=== PATIENT | female | born 1950 | race Caucasian/White ===

== ENCOUNTER → 2017-01-19 | Outpatient (CLI) | payer MEDICARE, BC | LOC: MW.CHPM 08:00 | CPT/HCPCS: 99214 ==

== ENCOUNTER → 2017-04-11 | Outpatient (CLI) | payer MEDICARE, BC | LOC: MW.CHPM 08:00 | PROVIDERS: ATTEND Anesthesiology | DX: M51.36 Other intervertebral disc degeneration, lumbar region (principal); M48.06 Spinal stenosis, lumbar region; M79.1 Myalgia; G89.4 Chronic pain syndrome | CPT/HCPCS: 20553; 99214; J0702; J1885 ==

== ENCOUNTER 2017-09-12 18:54 | Emergency (ER) | payer MEDICARE, BC ==
[2017-09-12] MEDS ORDERED: Sodium Chloride 0.9% 1,000 ML IV ONE (19:03)
[2017-09-12] MEDS ORDERED: Pantoprazole 40 MG in Sodium Chloride 0.9% 10 ML IVPUSH ONE (19:03)
[2017-09-12] MEDS ORDERED: Alum Hydrox/Mag Hydrox/Simeth 15 ML, Metoclopramide 5 MG, Lidocaine 2% 5 ML PO ONE ×3 (19:03)
[2017-09-12] MEDS ORDERED: Aspirin 81 MG Tab.Chew PO ONE (19:03)
--- NOTE | 2017-09-12 19:10 | EDM.PDOC ---
ED HPI GENERAL MEDICAL PROBLEM - General Chief Complaint: Chest Pain Stated Complaint: CHEST PAIN Time Seen by Provider: 09/12/17 18:56 Source of Information: Reports: Patient History Limitations: Reports: No Limitations - History of Present Illness INITIAL COMMENTS - FREE TEXT/NARRATIVE: HISTORY AND PHYSICAL: History of present illness: Patient is an 85-year-old female who presents to the emergency room today with complaints of epigastric pain that radiates into the left chest that started approximately at noon. States around noon she started to have epigastric pain, describes this as a burning pain that radiates into her midsternal chest into the left breast chest wall area. But she also has nausea and vomiting. Took 1 baby aspirin prior to arrival. Patient reports that she did have a similar episode of chest pain approximately a year ago and this was diagnosed to be epigastric/heartburn. Since that time she has been taking [id number] antacids. With her history of GERD - does take Zantac every night before bed. Took Tums prior to arrival with minimal relief. Reports that 2 days ago she felt constipated and did take an [id number] exited had good results yesterday. Since has had regular bowel movements. No significant family history of heart disease. Review of systems: As per history of present illness and below otherwise all systems reviewed and negative. Past medical history: As per history of present illness and as reviewed below otherwise noncontributory. Surgical history: As per history of present illness and as reviewed below otherwise noncontributory. Social history: No reported history of drug or alcohol abuse. Family history: As per history of present illness and as reviewed below otherwise noncontributory. Physical exam: HEENT: Atraumatic, normocephalic, pupils reactive, negative for conjunctival pallor or scleral icterus, mucous membranes moist, throat clear, neck supple, nontender, trachea midline. Lungs: Clear to auscultation, breath sounds equal bilaterally, chest nontender. Non-reproducible with palpation. Heart: S1S2, regular rate and rhythm Abdomen: Soft, nondistended, mild tenderness to the epigastric area otherwise nontender. No rebound tenderness. Negative for masses or hepatosplenomegaly. Negative for costovertebral tenderness. Pelvis: Stable nontender. Genitourinary: Deferred. Rectal: Deferred. Skin: Intact, warm, dry. No overt lesions or rashes. Extremities: Atraumatic, moves all extremities per self, negative for cords or calf pain. Neurovascular unremarkable. Neuro: Awake, alert, oriented. Cranial nerves II through XII unremarkable. Cerebellum unremarkable. Motor and sensory unremarkable throughout. Exam nonfocal. Reviewed diagnostics with patient. I strongly encouraged that we keep patient for observation for further evaluation and to monitor her pain. Patient declined admission at this time. Risks versus benefits were discussed. She states that if she does not feel improved or she develops new symptoms she will return to the emergency room. Is agreeable to following up with her primary care provider in the next day. Diagnostics: CBC, CMP, troponin, amylase, lipase, EKG, chest x-ray Therapeutics: IV fluid, Pepcid, aspirin (3 x 81mg - took one prior to arrival), GI cocktail Impression: Chest pain, nonspecific Epigastric pain Plan: 1. You declined admission at this time. As we discussed if your symptoms worsen or he develop new symptoms please return to the emergency room as soon as possible. 2. Continue your Zantac. If he continued to have symptoms of breakthrough heartburn he may want to establish care with a general surgeon for further evaluation. 3. Follow-up with your primary care provider in the next 1-2 days. Definitive disposition and diagnosis as appropriate pending reevaluation and review of above. Onset: Today Chest Pain Score (Numeric/FACES): 1 - Related Data Allergies Allergy/AdvReac Type Severity Reaction Status Date / Time No Known Allergies Allergy Verified 09/12/17 19:03 Home Meds: Home Meds FLUoxetine HCl [Fluoxetine HCl] 20 mg PO DAILY 05/25/14 [History] PHENobarbital 129.6 mg PO BEDTIME 05/25/14 [History] Topiramate 100 mg PO BID 05/25/14 [History] amLODIPine Besylate [Amlodipine Besylate] 5 mg PO DAILY 05/25/14 [History] levETIRAcetam [Keppra] 1,000 mg PO BID 05/25/14 [History] Losartan Potassium 25 mg PO DAILY 06/21/14 [History] Acetaminophen with Codeine [Tylenol with Codeine #3 Tablet] 1 - 2 each PO Q4H PRN 07/02/15 [History] Cholecalciferol (Vitamin D3) [Vitamin D] 2,000 unit PO DAILY 07/02/15 [History] Cyclobenzaprine [Flexeril] 10 mg PO TID PRN 07/02/15 [History] Ranitidine HCl [Ranitidine] 150 mg PO BID 07/02/15 [History] oxyCODONE HCl/Acetaminophen [Oxycodone-Acetaminophen 10-300] 1 tab PO ASDIRECTED PRN 09/12/17 [History] Past Medical History HEENT History: Reports: None Cardiovascular History: Reports: None Respiratory History: Reports: None Gastrointestinal History: Reports: None Genitourinary History: Reports: None CLINICAL PROGRAM COORDINATOR History: Reports: None Musculoskeletal History: Reports: None Neurological History: Reports: None Psychiatric History: Reports: Dementia Endocrine/Metabolic History: Reports: None Dermatologic History: Reports: None - Infectious Disease History Infectious Disease History: Reports: None - Past Surgical History HEENT Surgical History: Reports: None Cardiovascular Surgical History: Reports: None Social & Family History - Family History Family Medical History: Noncontributory - Tobacco Use Smoking Status *Q: Never Smoker Second Hand Smoke Exposure: No - Alcohol Use Days Per Week of Alcohol Use: 0 Number of Drinks Per Day: 0 Total Drinks Per Week: 0 - Recreational Drug Use Recreational Drug Use: No Drug Use in Last 12 Months: No ED ROS GENERAL - Review of Systems Review Of Systems: ROS reveals no pertinent complaints other than HPI. ED EXAM, GENERAL - Physical Exam Exam: See Below (See dictation) EKG INTERPRETATION EKG Date: 09/12/17 Time: 18:52 Rhythm: NSR Rate (Beats/Min): 89 Comparison: NA - No Prior EKG EKG Interpretation Comments: Reviewed by myself and Dr. Jacobo Course - Vital Signs Last Recorded V/S: Last Vital Signs Temp Pulse 104 H 09/12/17 19:00 Resp 16 09/12/17 19:00 BP 170/95 H 09/12/17 19:00 Pulse Ox 95 09/12/17 19:00 - Orders/Labs/Meds Orders: Active Orders 24 hr Category Date Time Status EKG Documentation Completion [RC] STAT Care 09/12/17 18:56 Active Chest 1V Frontal [CR] Stat Exams 09/12/17 18:56 Taken Labs: Laboratory Tests 09/12/17 09/12/17 09/12/17 Range/Units 19:50 19:50 19:50 WBC 11.43 H (4.0-11.0) K/uL RBC 3.61 L (4.30-5.90) M/uL Hgb 11.6 L (12.0-16.0) g/dL Hct 34.3 L (36.0-46.0) % MCV 95.0 (80.0-98.0) fL MCH 32.1 H (27.0-32.0) pg MCHC 33.8 (31.0-37.0) g/dL RDW Std Deviation 48.8 (28.0-62.0) fl RDW Coeff of Sg 14 (11.0-15.0) % Plt Count 222 (150-400) K/uL MPV 10.20 (7.40-12.00) fL Neut % (Auto) 79.9 (48.0-80.0) % Lymph % (Auto) 14.4 L (16.0-40.0) % [place] % (Auto) 5.2 (0.0-15.0) % Eos % (Auto) 0.3 (0.0-7.0) % Baso % (Auto) 0.2 (0.0-1.5) % Neut # (Auto) 9.1 H (1.4-5.7) K/uL Lymph # (Auto) 1.7 (0.6-2.4) K/uL [place] # (Auto) 0.6 (0.0-0.8) K/uL Eos # (Auto) 0.0 (0.0-0.7) K/uL Baso # (Auto) 0.0 (0.0-0.1) K/uL Nucleated RBC % 0.0 /100WBC Nucleated RBCs # 0 K/uL Sodium 137 (136-146) mmol/L Potassium 3.9 (3.5-5.1) mmol/L Chloride 109 (98-110) mmol/L Carbon Dioxide 20 L (21-31) mmol/L BUN 13 (6.0-23.0) mg/dL Creatinine 0.8 (0.6-1.5) mg/dL Est Cr Clr Drug Dosing 55.68 mL/min Estimated GFR (MDRD) > 60.0 ml/min Glucose 153 H (60-110) mg/dL Calcium 9.1 (8.8-10.8) mg/dL Total Bilirubin 0.2 (0.1-1.5) mg/dL AST 16 (5-40) IU/L ALT 9 (8-54) IU/L Alkaline Phosphatase 82 (40-150) Troponin I < 0.10 (0.0-0.29) NG/ML Total Protein 7.4 (6.0-8.0) g/dL Albumin 4.1 (3.4-4.8) g/dL Globulin 3.3 (2.0-3.5) g/dL Albumin/Globulin Ratio 1.2 L (1.3-2.8) Amylase 39 (10-90) U/L Lipase 14 (7-80) U/L H. pylori IgG Antibody (NEG) 09/12/17 Range/Units 19:50 WBC (4.0-11.0) K/uL RBC (4.30-5.90) M/uL Hgb (12.0-16.0) g/dL Hct (36.0-46.0) % MCV (80.0-98.0) fL MCH (27.0-32.0) pg MCHC (31.0-37.0) g/dL RDW Std Deviation (28.0-62.0) fl RDW Coeff of Sg (11.0-15.0) % Plt Count (150-400) K/uL MPV (7.40-12.00) fL Neut % (Auto) (48.0-80.0) % Lymph % (Auto) (16.0-40.0) % [place] % (Auto) (0.0-15.0) % Eos % (Auto) (0.0-7.0) % Baso % (Auto) (0.0-1.5) % Neut # (Auto) (1.4-5.7) K/uL Lymph # (Auto) (0.6-2.4) K/uL [place] # (Auto) (0.0-0.8) K/uL Eos # (Auto) (0.0-0.7) K/uL Baso # (Auto) (0.0-0.1) K/uL Nucleated RBC % /100WBC Nucleated RBCs # K/uL Sodium (136-146) mmol/L Potassium (3.5-5.1) mmol/L Chloride (98-110) mmol/L Carbon Dioxide (21-31) mmol/L BUN (6.0-23.0) mg/dL Creatinine (0.6-1.5) mg/dL Est Cr Clr Drug Dosing mL/min Estimated GFR (MDRD) ml/min Glucose (60-110) mg/dL Calcium (8.8-10.8) mg/dL Total Bilirubin (0.1-1.5) mg/dL AST (5-40) IU/L ALT (8-54) IU/L Alkaline Phosphatase (40-150) Troponin I (0.0-0.29) NG/ML Total Protein (6.0-8.0) g/dL Albumin (3.4-4.8) g/dL Globulin (2.0-3.5) g/dL Albumin/Globulin Ratio (1.3-2.8) Amylase (10-90) U/L Lipase (7-80) U/L H. pylori IgG Antibody NEGATIVE (NEG) Meds: Medications Discontinued Medications Generic Name Dose Route Start Last Admin Trade Name Freq PRN Reason Stop Dose Admin Aspirin 243 mg 09/12/17 19:03 09/12/17 19:15 Aspirin PO 09/12/17 19:04 243 mg ONETIME ONE Administration Al Hydroxide/Mg Hydroxide 15 0 ml 09/12/17 19:03 09/12/17 19:16 ml/ Metoclopramide HCl 5 mg/ PO 09/12/17 19:04 1 each Lidocaine HCl 5 ml ONETIME ONE Administration Pantoprazole Sodium 40 mg/ 10 mls @ 300 mls/hr 09/12/17 19:03 09/12/17 19:27 Sodium Chloride IVPUSH 09/12/17 19:04 300 mls/hr NOW ONE Administration Sodium Chloride 1,000 mls @ 999 mls/hr 09/12/17 19:03 09/12/17 19:27 Normal Saline IV 09/12/17 20:03 999 mls/hr STAT ONE Administration Ondansetron HCl 4 mg 09/12/17 20:13 09/12/17 20:18 Zofran IVPUSH 09/12/17 20:14 4 mg ONETIME ONE Administration Departure - Departure Time of Disposition: 20:50 Disposition: Home, Self-Care 01 Clinical Impression: Epigastric abdominal pain Forms: ED Department Discharge Additional Instructions: My general discharge The following information is given to patients seen in the emergency department who are being discharged to home. This information is to outline your options for follow-up care. We provide all patients seen in our emergency department with a follow-up referral. The need for follow-up, as well as the timing and circumstances, are variable depending upon the specifics of your emergency department visit. If you don't have a primary care physician on staff, we will provide you with a referral. We always advise you to contact your personal physician following an emergency department visit to inform them of the circumstance of the visit and for follow-up with them and/or the need for any referrals to a consulting specialist. The emergency department will also refer you to a specialist when appropriate. This referral assures that you have the opportunity for follow-up care with a specialist. All of these measure are taken in an effort to provide you with optimal care, which includes your follow-up. Under all circumstances we always encourage you to contact your private physician who remains a resource for coordinating your care. When calling for follow-up care, please make the office aware that this follow-up is from your recent emergency room visit. If for any reason you are refused follow-up, please contact the [facility] Emergency Department at and asked to speak to the emergency department charge nurse. [facility] [address] [place] [id number] [facility] Specialty Care - General Surgery Professional Building [address] [place] [address], [address] [place] [address] 1. You declined admission at this time. As we discussed if your symptoms worsen or he develop new symptoms please return to the emergency room as soon as possible. 2. Continue your Zantac. If he continued to have symptoms of breakthrough heartburn he may want to establish care with a general surgeon for further evaluation. 3. Follow-up with your primary care provider in the next 1-2 days. - My Orders Last 24 Hours: My Active Orders 09/12/17 18:56 EKG Documentation Completion [RC] STAT Chest 1V Frontal [CR] Stat - Assessment/Plan Last 24 Hours: My Active Orders 09/12/17 18:56 EKG Documentation Completion [RC] STAT Chest 1V Frontal [CR] Stat
[2017-09-12] MEDS ORDERED: Ondansetron 4 MG/2 ML SDV IVPUSH ONE (20:13)
[2017-09-12 20:14] LABS: CHLORIDE,CL 109 mmol/L (98-110); SODIUM,NA 137 mmol/L (136-146)
[2017-09-12 21:21] VITALS: BP 153/78
--- NOTE | 2017-09-13 10:10 | CR ---
EXAM DATE: 09/12/17 PATIENT'S AGE: 67 Patient: MANUELA SANTA Facility: [place], [place] Site . Site : 1950 Study: XRay Chest [id number]/23/2017 8:14:48 PM Ordering Physician: Doctor Andrews Final Report: INDICATION: chest pain TECHNIQUE: Chest 1 view COMPARISON: July 22, 2016 FINDINGS: Cardiovascular and mediastinum: Heart size and vasculature are normal in caliber and appearance. Mediastinum is within normal limits. Lungs and pleural space: No focal consolidation. No sign of pleural effusion. No pneumothorax. Bones and soft tissues: No significant findings. IMPRESSION: No acute cardiopulmonary disease. Dictated by Karlos Trevizo MD @ 09/12/2017 8:25:33 PM Dictated by: Karlos Trevizo MD @ 09/12/2017 20:25:50 (Electronic Signature) Report Signed by Proxy. MTDSinan
== END 2017-09-12 21:00 | disposition home or self-care (01) ==
LOC: MW.ED 18:54
DX: R10.13 Epigastric pain (principal); R07.9 Chest pain, unspecified; K21.9 Gastro-esophageal reflux disease without esophagitis; Z79.899 Other long term (current) drug therapy
CPT/HCPCS: 36415; 71010; 80053; 82150; 83690; 84484; 85025; 86677; 93005; 96361; 96374; 96375; 99285; A9270; C9113; J2405; J7040; 99283

== ENCOUNTER 2019-05-29 11:05 | Day surgery (SDC) | payer MEDICARE, BC ==
[2019-05-29] MEDS ORDERED: Ropivacaine 0.5% 5 MG/ML 30 ML SDV ONE (11:37)
[2019-05-29] MEDS ORDERED: Iopamidol 200-M 10 ML vial ITHECAL ONE (11:37)
[2019-05-29] MEDS ORDERED: Betamethasone Acetate/Betamethasone Sod Phosphate 30 MG/5 ML MDV ONE (11:37)
[2019-05-29] MEDS ORDERED: Lidocaine 2% 5 ML SDV ONE (11:37)
--- NOTE | 2019-05-29 19:08 | OR ---
SURGEON: Sofia Bates D.O. DATE OF PROCEDURE: 05/29/2019 PRIMARY SURGEON: Sofia Bates D.O. OPERATING ROOM STAFF PRESENT: 1. Fran Arias. 2. Elissa Schneider. 3. RT. Marissa WOUND CLASS: I. PREOPERATIVE DIAGNOSES: 1. Lumbar degenerative disk disease. 2. Lumbar spinal stenosis. 3. Lumbar spondylosis. 4. Chronic low back pain. POSTOPERATIVE DIAGNOSES: 1. Lumbar degenerative disk disease. 2. Lumbar spinal stenosis. 3. Lumbar spondylosis. 4. Chronic low back pain. PROCEDURE PERFORMED: 1. Caudal epidural steroid injection. 2. Fluoroscopic guidance for needle placement. 3. Local with oral Valium for sedation. SCREENING QUESTIONS: The patient answered "no" to all of the following questions: 1. Are you allergic to latex? 2. Do you have a bleeding disorder? 3. Do you have any current local or systemic infections? 4. Are you taking any anti-inflammatories or blood thinners? 5. Do you have any joint replacements, heart valve replacements, or a pacemaker? DESCRIPTION OF PROCEDURE: The patient had the procedure thoroughly explained including all possible risks, benefits and alternatives. Consent was signed in my clinic indicating understanding and willingness to proceed. The patient presented to [facility] [place] and was escorted to the dressing room to disrobe and change into a hospital gown. Preoperative vital signs were taken and stable. The patient reported that Valium was taken prior to the procedure. The patient was brought back to the procedure room and placed in the prone position on the procedure room table. A pillow was placed under the hips in order to flatten the lumbar lordosis. The back was prepped with ChloraPrep and sterilely draped. All personnel in the operating room were dressed in appropriate attire including surgical scrubs, head and shoe covers. This was to ensure sterility while in the treatment room. During the time fluoroscopy was in use, all personnel in the operating room wore lead mascorro with thyroid collars. Sterile technique was used throughout the procedure. The patient was awake and conversant throughout the procedure. There was no evidence of infection at the site of needle insertion. Skeletal landmarks were identified under fluoroscopy for the caudal epidural. Skin was anesthetized with 2% lidocaine with a sterile 27-gauge 1.5 inch needle. Then a 20-gauge Tuohy epidural needle was placed in the epidural space with loss of resistance technique under fluoroscopic guidance. No heme, cerebrospinal fluid, or paresthesias were noted. Isovue-200 contrast dye was injected in 0.2 cubic centimeter increments and seen to outline the epidural space in both AP and lateral views. There was no intravascular flow pattern observed under live fluoroscopy. Then 12 milligrams of Celestone was slowly injected after negative aspiration. The patient tolerated the procedure well. Vital signs were stable during and after the procedure. The staff escorted the patient to the recovery area and the patient was released in stable condition after a brief stay in the recovery room monitored by the nurse. The patient was given both oral and written discharge and follow up instructions with recommendation to follow up given for 2-3 weeks. The patient voiced understanding including understanding of those signs and symptoms that would require emergency care. The patient knows how to contact the office if there are any additional problems or questions in the meantime. PREOPERATIVE PAIN: 5/10. POSTOPERATIVE PAIN: 1/10. FOLLOWUP: In the Pain Clinic in 3 weeks. LILIANA / DENISE /[id number] YOUSIF
== END 2019-05-29 13:35 ==
LOC: MW.SDS 11:05
PROVIDERS: ATTEND Anesthesiology
DX: M51.16 Intervertebral disc disorders with radiculopathy, lumbar region (principal); M47.26 Other spondylosis with radiculopathy, lumbar region; M48.061 Spinal stenosis, lumbar region without neurogenic claudication; G89.29 Other chronic pain; M54.5 Low back pain; I10 Essential (primary) hypertension; F32.9 Major depressive disorder, single episode, unspecified; G40.909 Epilepsy, unspecified, not intractable, without status epilepticus; K29.50 Unspecified chronic gastritis without bleeding; M17.0 Bilateral primary osteoarthritis of knee; Z79.899 Other long term (current) drug therapy
CPT/HCPCS: 62323; J0702; J2795; Q9966; J2001

== ENCOUNTER 2020-10-31 06:29 | Day surgery (SDC) | payer MEDICARE, BC ==
[~2020-10-31 06:29] MED LIST: Lactated Ringers 1,000 ML IV SCH
[2020-10-31] MEDS ORDERED: fentaNYL 100 MCG/2 ML SDV ONE (07:07)
[2020-10-31] MEDS ORDERED: Propofol 200 MG/20 ML SDV ONE ×2 (07:07→08:25)
[2020-10-31] MEDS ORDERED: Midazolam 1 MG/ML 2 ML SDV ONE (07:07)
--- NOTE | 2020-10-31 07:22 | PCM.PREANE ---
Preanesthetic Assessment - Anesthesia/Transfusion/Family Hx Anesthesia History: Prior Anesthesia Without Reaction Other Type of Anesthesia Reaction Comment: DENIES ANY PROBLEMS WITH ANESTHESIA Family History of Anesthesia Reaction: No Transfusion History: No Prior Transfusion(s) Intubation History: Unknown - Review of Systems General: No Symptoms Pulmonary: No Symptoms Cardiovascular: No Symptoms Gastrointestinal: Abdominal Pain, Hematochezia Neurological: No Symptoms Other: Reports: None - Physical Assessment Vital Signs: Last Vital Signs Temp 36.1 C 10/31/20 06:36 Pulse 105 H 10/31/20 06:36 Resp 16 10/31/20 06:36 BP 127/91 H 10/31/20 06:36 Pulse Ox 99 10/31/20 06:36 Height: 5 ft 3 in Weight: 83.461 kg ASA Class: 2 Mental Status: Alert & Oriented x3 Airway Class: Mallampati = 1 Dentition: Reports: Dentures (upper and lower) Thyro-Mental Finger Breadths: 3 Mouth Opening Finger Breadths: 3 ROM/Head Extension: Limited/Partial Lungs: Clear to Auscultation, Normal Respiratory Effort Cardiovascular: Regular Rate, Regular Rhythm - Allergies Allergies/Adverse Reactions: Allergies Allergy/AdvReac Type Severity Reaction Status Date / Time No Known Allergies Allergy Verified 10/27/20 09:48 - Blood Blood Available: No - Anesthesia Plan Pre-Op Medication Ordered: None - Acknowledgements Anesthesia Type Planned: MAC Pt an Appropriate Candidate for the Planned Anesthesia: Yes Alternatives and Risks of Anesthesia Discussed w Pt/Guardian: Yes Pt/Guardian Understands and Agrees with Anesthesia Plan: Yes PreAnesthesia Questionnaire HEENT History: Reports: Other (See Below) Other HEENT History: reading glasses, upper denture Cardiovascular History: Reports: Hypertension Respiratory History: Reports: None Gastrointestinal History: Reports: Gastritis Other Gastrointestinal History: occasional heartburn Genitourinary History: Reports: None PANELBEATER History: Reports: Musculoskeletal History: Reports: Back Pain, Chronic, Fracture, Osteoarthritis Other Musculoskeletal History: hx of fx foot, DDD Neurological History: Reports: Migraines, Seizure (last one 2 months ago) Psychiatric History: Reports: Anxiety, Depression Endocrine/Metabolic History: Reports: Obesity/BMI 30+ (BMI 32.6) Hematologic History: Reports: None Immunologic History: Reports: None Oncologic (Cancer) History: Reports: None Dermatologic History: Reports: None - Infectious Disease History Infectious Disease History: Reports: Chicken Pox, Measles, Mumps - Past Surgical History Head Surgeries/Procedures: Reports: None HEENT Surgical History: Reports: None Cardiovascular Surgical History: Reports: None Respiratory Surgical History: Reports: None GI Surgical History: Reports: Cholecystectomy, EGD, Other (See Below) Other GI Surgeries/Procedures: hemorroidectomy Female Surgical History: Reports: None Endocrine Surgical History: Reports: None Neurological Surgical History: Reports: None Musculoskeletal Surgical History: Reports: None Oncologic Surgical History: Reports: None Dermatological Surgical History: Reports: None - SUBSTANCE USE Tobacco Use Status *Q: Never Tobacco User - HOME MEDS Home Medications: Home Meds FLUoxetine HCl [Fluoxetine HCl] 20 mg PO DAILY 05/25/14 [History] Topiramate 200 mg PO BID 05/25/14 [History] amLODIPine Besylate [Amlodipine Besylate] 5 mg PO DAILY 05/25/14 [History] levETIRAcetam [Keppra] 3 tab PO BID 05/25/14 [History] Losartan Potassium 25 mg PO DAILY 06/21/14 [History] Diclofenac Sodium 1 applic TOP ASDIRECTED PRN 10/27/20 [History] Diclofenac Sodium 50 mg PO BID PRN 10/27/20 [History] - CURRENT (IN HOUSE) MEDS Current Meds: Current Medications Lactated Ringer's (Ringers, Lactated) 1,000 mls @ 125 mls/hr IV ASDIRECTED BRENT Last Admin: 10/31/20 06:55 Dose: 125 mls/hr Documented by: Discontinued Medications Fentanyl (Sublimaze) Confirm Administered Dose 100 mcg .ROUTE .STK-MED ONE Stop: 10/31/20 07:08 Lidocaine HCl (Xylocaine-Mpf 1%) Confirm Administered Dose 5 ml .ROUTE .STK-MED ONE Stop: 10/31/20 07:10 Midazolam HCl (Versed 1 Mg/Ml) Confirm Administered Dose 2 mg .ROUTE .STK-MED ONE Stop: 10/31/20 07:08 Propofol (Diprivan 20 Ml) Confirm Administered Dose 400 mg .ROUTE .STK-MED ONE Stop: 10/31/20 07:08
[2020-10-31] MEDS ORDERED: Lactated Ringers 1,000 ML IV SCH (08:45)
--- NOTE | 2020-10-31 08:48 | PCM.OPNOTE ---
- General Post-Op/Procedure Note Date of Surgery/Procedure: 10/31/20 Operative Procedure(s): Esophagogastroduodenoscopy with gastric and esophageal biopsy. Colonoscopy. Pre Op Diagnosis: Abdominal pain. Bright red rectal bleeding. Change in bowel habits.. Progressive gastroesophageal reflux disease with heartburn. Post-Op Diagnosis: Mild to moderate acute and chronic gastritis. Heme positive material in the stomach. Superficial esophageal erosion/ulceration. Pancolonic diverticulosis. Anesthesia Technique: MAC (ASA II) Primary Surgeon: Dajuan Muñiz Blood Coordinator: Dajuan Muñiz Condition: Good Free Text/Narrative:: DICTATION [id number] CPT CODE [id number]
[2020-10-31 09:07] VITALS: BP 141/79; PULSE 62
--- NOTE | 2020-10-31 09:15 | PCM.POSTAN ---
POST ANESTHESIA ASSESSMENT - MENTAL STATUS Mental Status: Alert, Oriented - VITAL SIGNS Vital Signs: Last Vital Signs Temp 36.1 C 10/31/20 06:36 Pulse 62 10/31/20 09:00 Resp 14 10/31/20 09:00 BP 141/79 H 10/31/20 09:00 Pulse Ox 99 10/31/20 09:00 - RESPIRATORY Respiratory Status: Respiratory Rate WNL, Airway Patent, O2 Saturation Stable - CARDIOVASCULAR CV Status: Pulse Rate WNL, Blood Pressure Stable - GASTROINTESTINAL GI Status: No Symptoms - PAIN Pain Score: 0 - POST OP HYDRATION Hydration Status: Adequate & Stable - OBSERVATIONS Free Text/Narrative:: No anesthesia problems
--- NOTE | 2020-10-31 09:36 | PCM48HPAN ---
Post Anesthesia Note - EVALUATION WITHIN 48HRS OF ANESTHETIC Vital Signs in Normal Range: Yes Patient Participated in Evaluation: Yes Respiratory Function Stable: Yes Airway Patent: Yes Cardiovascular Function Stable: Yes Hydration Status Stable: Yes Pain Control Satisfactory: Yes Nausea and Vomiting Control Satisfactory: Yes Mental Status Recovered: Yes Vital Signs: Last Vital Signs Temp 36.1 C 10/31/20 06:36 Pulse 62 10/31/20 09:00 Resp 14 10/31/20 09:00 BP 141/79 H 10/31/20 09:00 Pulse Ox 99 10/31/20 09:00 - COMMENTS/OBSERVATIONS Free Text/Narrative:: No anesthesia problems
--- NOTE | 2020-10-31 09:49 | OR ---
SURGEON: Dajuan Muñiz M.D. DATE OF PROCEDURE: 10/31/2020 OPERATION PERFORMED: Colonoscopy. PRIMARY SURGEON: Dajuan Muñiz MD ANESTHESIA: MAC. ASA CLASSIFICATION: II. PREOPERATIVE DIAGNOSIS: Change in bowel habits with bright red rectal bleeding. POSTOPERATIVE DIAGNOSIS: Pancolonic diverticulosis. DESCRIPTION OF PROCEDURE: With the patient having completed upper GI endoscopy, she was maintained in the left lateral decubitus position. The colonoscope was inserted into the rectum and advanced with minimal difficulty to the cecum. The cecum was identified by internal landmarks and external pressure. The colonoscope was retroflexed in the cecum to visualize the ascending colon from below, then straightened, and slowly withdrawn. Cecum, ascending colon, hepatic flexure, transverse colon, splenic flexure, descending colon, sigmoid colon, and rectum were very well visualized. No tumors or polyps were seen. There were no angiodysplastic changes. The patient did have pancolonic diverticulosis with multiple diverticula noted beginning in the cecum and ascending colon. The area of most significant involvement was in the sigmoid colon. No stricture or spasm was noted in the sigmoid colon. The colonoscope was then withdrawn to the rectum and retroflexed to visualize the anal orifice from above. No acute hemorrhoidal changes were noted. The colonoscope was then straightened, the rectum aspirated, and the colonoscope removed. The patient tolerated the procedure well and was taken to recovery room in stable condition. CAROLYNE / DENISE /[id number]
--- NOTE | 2020-10-31 13:00 | OR ---
SURGEON: Dajuan Muñiz M.D. DATE OF PROCEDURE: 10/31/2020 OPERATION PERFORMED: Esophagogastroduodenoscopy with biopsy. PRIMARY SURGEON: Dajuan Muñiz MD ANESTHESIA: MAC. ASA CLASSIFICATION: II. PREOPERATIVE DIAGNOSES: Persistent abdominal pain, progressive heartburn, and history of chronic gastritis. POSTOPERATIVE DIAGNOSES: 1. Tilu-rh-[id number] acute on chronic gastritis. 2. Distal esophagitis. DESCRIPTION OF PROCEDURE: The patient was taken to the endoscopy room and positioned on the endoscopy table in the left lateral decubitus position. Time-out was called for appropriate identification of the patient and procedure. Monitored anesthesia care was provided. The bite block was placed between the patient's teeth. The gastroscope was inserted through the bite block into the oropharynx and advanced without difficulty through the esophagus and stomach into the duodenum where examination was now carried out in a retrograde fashion. The duodenum showed no acute inflammatory changes or ulcerations. The stomach did show mild-to- moderate chronic gastritis. Additionally, there was some heme-appearing material present in the stomach. No acute ulcerations were noted. Antral biopsies were obtained to look for the presence of Helicobacter pylori. The gastroscope was retroflexed to visualize the proximal stomach. No significant hiatal hernia was noted. The gastroscope was then straightened and slowly withdrawn carefully visualizing the greater and lesser curvatures. Again, no acute inflammatory changes were noted. The GE junction showed minimal acute inflammatory changes. Biopsies of the esophagus were obtained at approximately 39 cm to 40 cm. As we slowly withdrew the scope, there were some superficial esophageal ulcers at approximately 33 cm. Separate biopsies of this area were taken. The remainder of the mid and proximal esophagus showed no acute inflammatory changes. The vocal cords were briefly visualized as the scope was withdrawn and noted to move symmetrically. The gastroscope was then removed with the patient having tolerated this portion of the procedure well. Following colonoscopy, she was taken to recovery room in stable condition. CAROLYNE / DENISE /[id number]
== END 2020-10-31 09:30 | disposition home or self-care (01) ==
LOC: MW.SDS 06:29
PROVIDERS: ATTEND Surgery
DX: K57.30 Diverticulosis of large intestine without perforation or abscess without bleeding (principal); K29.50 Unspecified chronic gastritis without bleeding; K29.00 Acute gastritis without bleeding; K22.10 Ulcer of esophagus without bleeding; I10 Essential (primary) hypertension; Z79.899 Other long term (current) drug therapy; Z98.890 Other specified postprocedural states; E66.9 Obesity, unspecified; Z68.32 Body mass index [BMI] 32.0-32.9, adult; Z90.49 Acquired absence of other specified parts of digestive tract
CPT/HCPCS: 43239; 45378; J2001; J2704; J3010; J7120; J2250

== ENCOUNTER 2022-07-07 08:35 | Observation (INO) | payer BC, MEDICARE, OTHER ==
[~2022-07-07 08:35] MED LIST changes: +Famotidine 20 MG/2 ML SDV IVPUSH SCH; -Lactated Ringers 1,000 ML IV SCH; +Ropivacaine 49.25 ML, Ketorolac 30 MG, EPINEPHrine 0.5 MG, cloNIDine 80 MCG in Sodium C... INJECT SCH; +Scopolamine 1.5 MG Transdermal Patch TRDERM SCH; +Tranexamic Acid 1,000 MG in Sodium Chloride 0.9% 100 ML IV ONE; +ceFAZolin 2 GM in Premix Bag 1 BAG IV SCH
[2022-07-07] MEDS ORDERED: Ondansetron 4 MG/2 ML SDV IVPUSH PRN ×2 (09:12→14:28)
[2022-07-07] MEDS ORDERED: Metoclopramide 10 MG/2 ML SDV IVPUSH PRN (09:12)
[2022-07-07] MEDS ORDERED: HYDROmorphone 1 MG/ML Syringe IVPUSH PRN ×2 (09:12→14:35)
[2022-07-07] MEDS ORDERED: Naloxone 0.4 MG/ML SDV IVPUSH PRN (09:12)
[2022-07-07] MEDS ORDERED: fentaNYL 50 MCG/ML SDV IVPUSH PRN (09:12)
[2022-07-07] MEDS ORDERED: Albuterol 0.083% 2.5 MG/3 ML Neb Soln NEB PRN (09:12)
[2022-07-07] MEDS: Lactated Ringers 1,000 ML IV SCH (09:13)
[2022-07-07] MEDS ORDERED: Ropivacaine 0.5% 5 MG/ML 30 ML SDV ONE (10:02)
[2022-07-07] MEDS ORDERED: fentaNYL 100 MCG/2 ML SDV ONE (10:06)
[2022-07-07] MEDS ORDERED: Lidocaine 2% 5 ML SDV ONE (10:06)
[2022-07-07] MEDS ORDERED: Propofol 200 MG/20 ML SDV ONE (10:48)
[2022-07-07] MEDS ORDERED: fentaNYL 250 MCG/5 ML SDV ONE (10:49)
[2022-07-07] MEDS ORDERED: ePHEDrine 50 MG/ML SDV ONE (12:17)
[2022-07-07] MEDS ORDERED: Phenylephrine HCl In 0.9% NaCl 1 MG/10 ML Vial ONE (12:23)
[2022-07-07] MEDS ORDERED: Ketorolac 30 MG/ML SDV ONE (13:06)
[2022-07-07] MEDS ORDERED: Ondansetron 4 MG/2 ML SDV ONE (13:06)
[2022-07-07] MEDS ORDERED: Metoprolol Tartrate 5 MG/5 ML SDV ONE (13:38)
[2022-07-07] MEDS ORDERED: Bisacodyl 10 MG Supp RECTAL PRN (14:28)
[2022-07-07] MEDS ORDERED: Aluminum Hydroxide/Magnesium Hydroxide/Simethicone XS Susp 30 ML Cup PO PRN (14:28)
[2022-07-07] MEDS ORDERED: Sodium Chloride 0.9% 10 ML Syringe FLUSH PRN (14:28)
[2022-07-07] MEDS ORDERED: diphenhydrAMINE 25 MG Cap PO PRN (14:28)
[2022-07-07] MEDS ORDERED: oxyCODONE 5 MG Tab PO PRN ×2 (14:28→15:26)
[2022-07-07] MEDS ORDERED: Sodium Chloride 0.9% 2.5 ML Syringe FLUSH PRN (14:28)
[2022-07-07] MEDS ORDERED: traMADol 50 MG Tab PO PRN (15:28)
[2022-07-07] MEDS: Ketorolac 30 MG/ML SDV IVPUSH SCH ×2 (17:54→20:17)
[2022-07-07] MEDS: FLUoxetine 20 MG Cap PO SCH (19:53)
[2022-07-07] MEDS: Aspirin 325 MG Tab PO SCH (20:16)
[2022-07-07] MEDS: Topiramate 100 MG Tab PO SCH (20:17)
[2022-07-07] MEDS: Docusate Sodium 100 MG Cap PO SCH (20:17)
[2022-07-07] MEDS: ceFAZolin 2 GM in Premix Bag 1 BAG IV SCH (20:18)
[2022-07-07] MEDS: levETIRAcetam 500 MG Tab PO SCH (20:59)
[2022-07-07] MEDS: traMADol 50 MG Tab PO PRN (21:06)
[2022-07-08] MEDS: Ketorolac 30 MG/ML SDV IVPUSH SCH (03:06)
[2022-07-08] MEDS: ceFAZolin 2 GM in Premix Bag 1 BAG IV SCH (04:33)
[2022-07-08] MEDS: Lactated Ringers 1,000 ML IV SCH (04:34)
[2022-07-08] MEDS ORDERED: Polyethylene Glycol 3350 Powder 17 GM Packet PO SCH (09:00)
[2022-07-08] MEDS ORDERED: Famotidine 20 MG Tab PO SCH (09:00)
[2022-07-08] MEDS: traMADol 50 MG Tab PO PRN (09:16)
[2022-07-08] MEDS: Aspirin 325 MG Tab PO SCH (09:16)
[2022-07-08] MEDS: FLUoxetine 20 MG Cap PO SCH (09:17)
[2022-07-08] MEDS: Docusate Sodium 100 MG Cap PO SCH (09:17)
[2022-07-08] MEDS: Topiramate 100 MG Tab PO SCH (09:19)
[2022-07-08] MEDS: levETIRAcetam 500 MG Tab PO SCH (09:19)
[2022-07-08] MEDS ORDERED: Losartan 50 MG Tab PO SCH (10:30)
[2022-07-08 12:54] VITALS: BP 120/56; PULSE 73
[2022-07-09] MEDS ORDERED: amLODIPine 5 MG Tab PO SCH (09:00)
[2022-07-09] MEDS ORDERED: Losartan 50 MG Tab PO SCH (09:00)
== END 2022-07-08 14:15 | disposition home or self-care (01) ==
LOC: MW.SDS 08:35 → MW.OB 11:31 → MW.MS 15:15 → MW.SDS 15:16
PROVIDERS: ADMIT Orthopaedic Surgery; ATTEND Orthopaedic Surgery
DX: M17.12 Unilateral primary osteoarthritis, left knee (principal); G40.909 Epilepsy, unspecified, not intractable, without status epilepticus; I10 Essential (primary) hypertension; R73.03 Prediabetes; D64.9 Anemia, unspecified; E53.8 Deficiency of other specified B group vitamins; E66.9 Obesity, unspecified; Z79.899 Other long term (current) drug therapy; Z79.82 Long term (current) use of aspirin; Z98.890 Other specified postprocedural states
CPT/HCPCS: 27447; 36415; 73560; 82947; 85014; 85018; 86850; 86900; 86901; 96374; 96376; 97110; 97161; A9270; C1713; C1776; G0378; J0131; J0171; J0690; J0735; J1885; J2704; J2795; J3010; J3490; J7120; 01402; 64450; 76942; 99024; 99100; J2405

== ENCOUNTER 2022-08-18 15:02 | Emergency (ER) | payer MEDICARE, BC ==
[2022-08-18] MEDS ORDERED: Sodium Chloride 0.9% 2.5 ML Syringe FLUSH PRN (16:47)
[2022-08-18] MEDS ORDERED: Sodium Chloride 0.9% 10 ML Syringe FLUSH PRN (16:47)
[2022-08-18 18:11] LABS: CARBON DIOXIDE,CO2 22.8 mmol/L (21.0-32.0); POTASSIUM,K 4.3 mmol/L (3.5-5.1)
[2022-08-18] MEDS ORDERED: Iopamidol 755 MG/ML 500 ML Multipack Bottle IVPUSH STA (18:31)
[2022-08-18] MEDS ORDERED: Apixaban 5 MG Tab PO ONE ×2 (20:20→20:23)
[2022-08-19 01:57] VITALS: BP 110/78; PULSE 74
== END 2022-08-18 21:20 | disposition home or self-care (01) ==
LOC: MW.ED 15:02
DX: I26.93 Single subsegmental thrombotic pulmonary embolism without acute cor pulmonale (principal); I10 Essential (primary) hypertension; E66.9 Obesity, unspecified; M19.90 Unspecified osteoarthritis, unspecified site; Z20.822 Contact with and (suspected) exposure to COVID-19; Z79.82 Long term (current) use of aspirin; Z79.899 Other long term (current) drug therapy; Z68.26 Body mass index [BMI] 26.0-26.9, adult
CPT/HCPCS: 36415; 71275; 80053; 83690; 83880; 84484; 85025; 93005; 99285; A9270; J3490; Q9967; U0002; 93010; 99284